=== PATIENT | female | born 1930 | race Caucasian/White ===

== ENCOUNTER 2016-03-26 09:51 | Inpatient (IN) | payer MEDICARE ==
[~2016-03-26] VITALS: Ht 167.6 cm; Wt 53.2 kg
--- NOTE | 2016-03-26 09:52 | ED.REPORT ---
HPI-General Illness Date of Service Mar 26, 2016 ED Provider: The patient is an 85 year old female who presents to the emergency department complaining of dizziness that began a few days ago. She describes the dizziness as "room-spinning." The dizziness is exacerbated with head movement. She has been able to ambulate. Today she lost her balance and fell onto the couch. She did not obtain any injuries. She denies history of vertigo. She has not had similar symptoms in the past. She denies weakness, numbness, speech changes, or vision changes. She denies fever, chills, cough, shortness of breath, chest pain , diaphoresis, abdominal pain, nausea, vomiting, diarrhea or dysuria. She was recently treated for a UTI, these symptoms have since improved. Nursing Notes Stated Complaint: DIZZY Nursing Notes Reviewed: Yes Allergies: Coded Allergies: No Known Allergies (Unverified , 03/26/16) General Time Seen by MD: 09:51 Chief Complaint Dizziness Hx Obtained From: Patient, EMS Arrived By: Ambulance Sudden in Onset?: Yes Onset Occurred: 3 days ago Symptom Duration: Since onset Severity: Current: No pain currently Severity: Maximum: No pain Recent Healthcare: No recent doctor visit, No recent hospitalization Similar Sx Previous: No NIH Stroke Scale Level of Consciousness: Alert and responsive (0) Ask Month & Age: Both questions right (0) Open/Close Eyes/Hand Gleason Gear Generator: Performs both tasks (0) Horizontal EO Movements: None (0) Visual Oliveros: No visual loss (0) Facial Palsy: Normal symmetry (0) Right Arm Motor Drift (10s): No drift 10 sec (0) Left Arm Motor Drift (10s): No drift 10 sec (0) Right Leg Motor Drift (5s): No drift 5 sec (0) Left Leg Motor Drift (5s): No drift 5 sec (0) Limb Ataxia FNF/Heel-Francis: No ataxia (0) Sensation (Arms/Legs/Face): No sensory loss (0) Language Aphasia: No aphasia, normal (0) Dysarthria: No dysarthria, normal (0) Extinction/Inattention: No exctinct/inattent (0) NIHSS Score: 0 Time NIHSS Performed: 11:35 Date NIHSS Performed: Mar 26, 2016 Past Medical History Past Medical History Arthrosclerosis Breast cancer Family History Noncontributory Smoking History Unknown if Ever Smoker Social History Lives in [facility]. She has a caregiver with her every morning for 4 hours. Other Social History: Local resident Ambulatory Status Independent Review of Systems Full Review of Systems Constitutional: Denies: Chills, Fever Ears / Nose / Throat: Denies: Ear ringing bilateral Respiratory: Denies: Non-productive cough, Shortness of breath Cardiovascular: Denies: Chest pain GI: Denies: Abdominal pain, Diarrhea, Nausea, Vomiting Female: Denies: Dysuria Musculoskeletal: Denies: Back pain, Extremity pain, Neck pain Skin: Denies Diaphoresis Allergy / Immune: Reports: Rhinorrhea Neurologic: Reports: Dizziness, Spinning sensation, Denies: Change LOC, Focal weakness, Headache, Numbness, Slurred speech, Syncope, Vision change Complete sys rev & neg: except as marked. Physical Exam Vital Signs Vital Signs Date Time Temp Pulse Resp B/P Pulse Ox O2 Delivery O2 Flow Rate FiO2 03/26/16 12:26 49 17 124/55 95 Room Air 03/26/16 10:24 36.6 51 16 136/60 96 Room Air 03/26/16 10:24 36.6 51 16 136/60 96 Room Air Initial VS: Reviewed Head / Eyes: Atraumatic, Normocephalic, PERRL ENT: Mucous membranes moist, Conjunctiva normal, No scleral icterus Neck: Supple, Non-tender, Full range of motion Respiratory: Breath sounds normal, Clear to auscultation, No respiratory distress Cardiovascular: Regular rate & rhythm, Heart sounds normal, Intact distal pulses Abdomen / GI: Soft, Non-tender, No guarding, No rebound, No distention Lymphatic: No lymphadenopathy Extremities: Vascular intact, Neuro intact, No swelling, No tenderness Skin: Warm, Dry, No cyanosis Psychiatric: Mood/affect normal, Behavior normal, Normal thought content General/Constitutional: Awake, Alert Thin and frail Neurologic: Oriented X3, Speech NL inducible dizziness with head movement Interpretation & Diagnostics Lab Results Interpretation Result Diagram: 03/26/16 1018 03/26/16 1040 Test 03/26/16 10:12 03/26/16 10:18 03/26/16 10:34 03/26/16 10:40 Hold Rosa Top Tube Received (Received) White Blood Count 7.1th/mm3 (3.8-10.1) Red Blood Count 4.57mil/mm3 (3.90-5.20) Hemoglobin 14.1g/dL (12.0-15.6) Hematocrit 43.7% (35.0-46.0) Mean Corpuscular Volume 95.6fL (81-100) Mean Corpuscular Hemoglobin 30.9pg (27.0-35.0) Mean Corpuscular Hemoglobin Concent 32.3% (32.0-37.0) Red Cell Distribution Width 14.2% (12.3-15.4) Platelet Count 268bil/L (150-400) Neutrophils (%) (Auto) 74.3% (40-74) Lymphocytes (%) (Auto) 16.1% (14-46) Monocytes (%) (Auto) 6.9% (4-12) Eosinophils (%) (Auto) 1.8% (0-5) Basophils (%) (Auto) 0.3% (0-3) Urine Color Straw (YELLOW) Urine Appearance Hazy (CLEAR,HAZY) Urine pH 8.0 (5.0-8.0) Urine Specific [place] 1.015 (1.003-1.035) Urine Protein Negativemg/dL (NEG,TRACE) Urine Glucose (UA) Negativemg/dL (NEGATIVE) Urine Ketones Negativemg/dL (NEGATIVE) Urine Occult Blood Negative (NEGATIVE) Urine Nitrite Negative (NEGATIVE) Urine Bilirubin Negative (NEGATIVE) Urine Urobilinogen Normalmg/dL (NORMAL) Urine Leukocyte Esterase Negative (NEGATIVE) Urine RBC 0-2/hpf (0-2) Urine WBC 0-5/hpf (0-5) Urine Epithelial Cells Occasional/hpf (NONE-MOD) Urine Crystals Amorphous phosphates Urine Bacteria None/hpf (NONE-FEW) Urine Hyaline Casts None/lpf (NONE) Urine Granular Casts None seen (NONE SEEN) Urine Waxy Casts None seen (NONE SEEN) Urine Red Blood Cell Casts None seen (NONE SEEN) Urine White Blood Cell Casts None seen (NONE SEEN) Urine Mucus None seen (None Seen) Urine Trichomonas None seen (NONE SEEN) Urine Yeast None (NONE SEEN) Urinalysis Comment None Urine Culture Reflexed Not indicated Sodium Level 141mEq/L (134-144) Potassium Level 3.8mEq/L (3.5-5.2) Chloride Level 101mEq/L (97-108) Carbon Dioxide Level 27mmol/L (18-29) Blood Urea Nitrogen 10mg/dL (8-27) Creatinine 0.39mg/dL (0.57-1.00) Estimat Glomerular Filtration Rate 224mL/min (>59) Glucose Level 98mg/dL (60-99) Calcium Level 9.2mg/dL (8.5-10.1) Magnesium Level 1.9mg/dL (1.6-2.6) Total Bilirubin 0.5mg/dL (0.0-1.2) Aspartate Amino Transf (AST/SGOT) 23U/L (0-50) Alanine Aminotransferase (ALT/SGPT) 14U/L (0-32) Alkaline Phosphatase 86U/L (25-165) Troponin T < 0.010ug/L (0.0-0.011) Total Protein 7.0g/dL (6.4-8.4) Albumin 3.5g/dL (3.4-5.0) ECG Interpretation ECG Interpretation: Sinus rhythm with a rate of 56 LVH Time: 10:30 Interpreted by: ED physician X-Ray Chest Interpretation Chest Xray Interpretation: IMPRESSION: No acute cardiopulmonary disease process. Dictated by: Elizabeth Morales MD, PhD on 03/26/2016 at 11:20 Interpretation / Wet Read by: Interpret - Radiologist CT Head Interpretation IMPRESSION: 1. No acute intracranial abnormality. Dictated by: Pj Saul M.D. on 03/26/2016 at 11:29 Study: Head CT no contrast Interpretation / Wet Read by: Interpret - Radiologist Re-Eval/Medical Decision Med Decision/Clinical Course Overall symptoms sound consistent with BPPV however patient failed a road test and felt like she was going to fall over, this coupled with the fact that she has advanced age and comorbid conditions as well as the fact that she lives in independent living make her fall risk even greater. I would opt to admit her for observation and improvement of symptoms. Source of Hx: Old records, EMS Time of Eval: 11:35 Re-Evaluation/Progress Note: Completed NIH stroke scale Time of Eval: 13:20 Re-Evaluation/Progress Note: The patient did well on her road test until close the end when she suddenly became dizzy and almost fell to the ground. Time of Eval: 13:30 Re-Evaluation/Progress Note: Rechecked the patient. Discussed plan for admission. All questions were addressed. Consultation : Referral / Consult Name: Edy Rios MD Consulted With: Hospitalist Requested Call at: 13:30 Call Returned at: 13:59 Ux Interaction Designer: Will see patient, Agrees with eval, Agrees with plan, Accepts admit Counseled Regarding: Diagnosis, Lab results, Need for admission Discharge & Departure Primary Impression: Pre-syncope Additional Impression: Dizziness Disposition: ADMITTED TO HOSPITAL Discharge Condition All VS Reviewed: Yes Condition: Stable Scribe Attestation Portions of this note were transcribed by Jacklyn Lares. I, Dr. Vaz personally performed the history, physical exam and medical decision-making; I reviewed and confirmed the accuracy of the information in the transcribed note. Signed by: Gisel Sam, 03/26/2016 at 1402. Robe Vaz DO Mar 26, 2016 09:52 Jacklyn Lares Mar 26, 2016 09:53
[2016-03-26] MEDS ORDERED: 0.9% Sodium Chloride 1,000 ML IV ONE (10:05)
[2016-03-26 10:23] LABS: BASOPHILS % (AUTO) 0.3 % (0-3); EOSINOPHILS % (AUTO) 1.8 % (0-5); MONOCYTES % (AUTO) 6.9 % (4-12); Mean Corpuscular Hemoglobin 30.9 pg (27.0-35.0); Mean Corpuscular Volume 95.6 fL (81-100); NEUTROPHILS % (AUTO) 74.3 % (40-74); Platelet Count 268 bil/L (150-400)
[2016-03-26 10:24] VITALS: BP 136/60; PULSE 51; RESP 16; O2SAT 96
--- NOTE | 2016-03-26 11:22 | DRSVH ---
PROCEDURE: X-RAY CHEST ONE VIEW, PORTABLE ([id number]) INDICATIONS: dizziness, weakness, falls TECHNIQUE: One view of the chest was acquired. COMPARISON: None. FINDINGS: Surgical changes and devices: Right axillary surgical clips. Lungs and pleura: No pleural effusions or pneumothorax. Lungs are clear. Mediastinum: Mediastinal contours appear normal. Heart size is normal. Bones and chest wall: No suspicious bony lesions. Overlying soft tissues appear unremarkable. IMPRESSION: No acute cardiopulmonary disease process. Dictated by: Elizbaeth Morales MD, PhD on 03/26/2016 at 11:20 Approved by: Elizabeth Morales MD, PhD on 03/26/2016 at 11:20
[2016-03-26 11:23] LABS: TROPONIN T < 0.010 ug/L (0.0-0.011)
[2016-03-26 11:24] LABS: APPEARANCE,URINE HAZY (CLEAR,HAZY); COLOR,URINE STRAW (YELLOW); OCCULT BLOOD,URINE NEGATIVE (NEGATIVE); UROBILINOGEN,URINE NORMAL (NORMAL)
--- NOTE | 2016-03-26 11:34 | DRSVH ---
PROCEDURE: CT BRAIN WITHOUT CONTRAST ([id number]) INDICATIONS: dizziness TECHNIQUE: Noncontrast 4.5 mm thick angled axial sections acquired from the foramen magnum to the vertex, with c oronal reformats. COMPARISON: None. FINDINGS: Image quality: Excellent. CSF spaces: Basal cisterns are patent. No extra-axial fluid collections. The ventricles are symmet leanna in size and shape. Brain: No intracranial bleeds or masses. There is cerebral volume loss for age, with resultant vent ricular and sulcal prominence. There are periventricular and deep white matter chronic small vessel ischemic changes. There is intracranial internal carotid artery atherosclerosis. Skull and face: Calvarium and visualized facial bones appear intact, without suspicious lesions. Sinuses: Mild left maxillary sinus mucosal thickening is present. Visualized sinuses and mastoids ar e otherwise clear. IMPRESSION: 1. No acute intracranial abnormality. Dictated by: Pj Saul M.D. on 03/26/2016 at 11:29 Approved by: Pj Saul M.D. on 03/26/2016 at 11:32
[2016-03-26 12:26] VITALS: BP 124/55; PULSE 49; RESP 17; O2SAT 95
[2016-03-26] MEDS ORDERED: Polyethylene Glycol (PEG) 17 Gm Powder PO PRN (14:10)
[2016-03-26] MEDS ORDERED: Labetalol 5 mg/mL 4 mL Inj IVPUSH PRN (14:10)
[2016-03-26] MEDS ORDERED: Alum-Mag Hydrox-Simeth 30 mL Suspension PO PRN (14:10)
[2016-03-26] MEDS ORDERED: HYDROcodone-APAP 5-325 mg Tablet PO PRN (14:10)
[2016-03-26] MEDS ORDERED: Ondansetron 2 mg/mL 2 mL Inj IV PRN (14:10)
--- NOTE | 2016-03-26 14:31 | PCM.HPMED ---
Subjective Date of Service Mar 26, 2016 Primary Provider: Admitting Physician: Primary Care Physician: Neville Norwood MD Attending Physician: Admit Status: From the Emergency Department, 23-Hour Observation Chief Complaint: Dizziness, Weakness History of Present Illness: Patient is an 85 year old female with a past medical history of Depression, Breast Cancer, Essential Hypertension, Hyperlipidemia, and hx of Tobacco Use Disorder. She presents to the ER at [facility] complaining of dizziness and generalized weakness for the last 2-3 weeks. Pt states her symptoms are intermittent. This morning she awoke from sleep with significant dizziness. Pt states she felt as though the room was spinning. She states the dizziness lasted approx 10 minutes and then resolved spontaneously. She denies any associated headache, nausea, vomiting, or visual changes. Pt states this has been going on intermittently for nearly 3 weeks and she has never had symptoms like this before. Pt states today she felt very weak and was unable to walk for a period of time secondary to her significant weakness, which then spontaneously resolved. She denies any slurred speech, chest pain, shortness of breath, palpitations, and difficulty swallowing. Pt states her weakness seems to be bilateral. She is currently taking Plavix and Aspirin daily at home. No other complaints or concerns at this time. Review of Systems: All systems reviewed and are negative except for what has already been mentioned in the HPI. Allergies Coded Allergies: No Known Allergies (Unverified , 03/26/16) Home Medications 1. Hydrochlorothiazide 2. Sertraline 3. Vytorin 4. Anastrozole 5. Procardia 6. Metoprolol 7. Plavix 8. Aspirin PMH 1. Essential Hypertension 2. Depression 3. Hx of Breast Cancer 4. Hypercholesterolemia 5. Remote Hx of Tobacco Use Disorder Surgical History None Family History Pt denies any family hx of stroke. Social History Hx Alcohol Use: No Hx Substance Use: No Hx Tobacco Use: Yes Smoking Status: Former Smoker Living Arrangement: Assisted Living Exam Vital Signs Vital Sign - Last Date Time Temp Pulse Resp B/P Pulse Ox O2 Delivery O2 Flow Rate FiO2 03/26/16 12:26 49 17 124/55 95 Room Air 03/26/16 10:24 36.6 Exam GENERAL: NAD, Pt laying in bed comfortably HEENT: AT/NC, PERRLA, EOMI, Mucus Membranes are moist CARDIAC: RRR; No M/R/G PULM: CTAB; No wheezes or rhonchi bilaterally ABD: Soft, Nontender, Nondistended, Positive bowel sounds in all quadrants, No Hepatosplenomegaly appreciated EXT: No C/C/E; No calf tenderness bilaterally SKIN: Warm, Dry, [place], and Intact NEURO: Alert and oriented x3; Following all commands; 4/5 strength in bilateral upper and lower extremities PSYCH: Normal mood and affect Lab and Diagnostics Result Diagram: 03/26/16 1018 03/26/16 1040 X-Rays, CTs and MRIs CT BRAIN WITHOUT CONTRAST INDICATIONS: dizziness TECHNIQUE: Noncontrast 4.5 mm thick angled axial sections acquired from the foramen magnum to the vertex, with coronal reformats. COMPARISON: None. FINDINGS: Image quality: Excellent. CSF spaces: Basal cisterns are patent. No extra-axial fluid collections. The ventricles are symmetric in size and shape. Brain: No intracranial bleeds or masses. There is cerebral volume loss for age , with resultant ventricular and sulcal prominence. There are periventricular and deep white matter chronic small vessel ischemic changes. There is intracranial internal carotid artery atherosclerosis. Skull and face: Calvarium and visualized facial bones appear intact, without suspicious lesions. Sinuses: Mild left maxillary sinus mucosal thickening is present. Visualized sinuses and mastoids are otherwise clear. IMPRESSION: 1. No acute intracranial abnormality. Assessment & Plan Patient is an 85 year old female with a past medical history of Essential Hypertension, Hyperlipidemia, Depression, Hx of Breast Cancer, and remote hx of Tobacco Use Disorder who is admitted to hospital for possible TIA. 1. Transient Ischemic Attack - Will admit as observation - Will order an MRI of brain and MRA of neck - Will order an ECHO now - Continue home Plavix - Increase Aspirin to 324 mg daily - Speech Therapy evaluation for ability to swallow - Physical Therapy evaluation - Hold home antihypertensives for now - Telemetry monitoring - IV Labetalol PRN for SBP greater than 220 mmHg - Meclizine 25 mg PO TID PRN for dizziness - Lipid Panel in AM 2. Essential Hypertension - Well controlled - Hold home antihypertensives for 24 hours given #1 - IV Labetalol PRN for SBP greater than 220 mmHg - Monitor BP closely 3. Hyperlipidemia - Check fasting lipid panel in AM - Pt on Vytorin normally at home 4. Depression - Continue home Sertraline DNR/DNI, per discussion with patient at bedside. Pain Evaluation: Adequate Pain Control GI Prophylaxis: Not indicated VTE Mechanical Devices: Intermittant Pneumatic CD Resuscitation Status: DNR/DNI:Do Not Resuscitate/Intubate Edy Rios MD Mar 26, 2016 14:31
[2016-03-26 15:12] VITALS: BP 136/97; PULSE 78; RESP 19; O2SAT 97
--- NOTE | 2016-03-26 15:36 | NUR ---
Evaluation completed. Please go to "Notes" then click on "Assessments and Notes" (bottom left corner of screen). Then select appropriate discipline tab on top of screen.
[2016-03-26] MEDS ORDERED: HYDR25TA4 PO (16:13)
[2016-03-26] MEDS ORDERED: SERT25TA6 PO (16:14)
[2016-03-26] MEDS ORDERED: EZET1TAB7 PO (16:15)
[2016-03-26] MEDS ORDERED: ANAS1TAB7 PO (16:15)
[2016-03-26] MEDS ORDERED: NFD30TCR PO (16:16)
[2016-03-26] MEDS ORDERED: METO-274 PO (16:17)
[2016-03-26] MEDS ORDERED: ASPI81TA3 PO (16:18)
[2016-03-26] MEDS ORDERED: CLOP75TA3 PO (16:18)
[2016-03-26 16:22] VITALS: BP 131/55; PULSE 63; RESP 20; O2SAT 96
[2016-03-26 22:37] VITALS: BP 123/54; PULSE 61; RESP 16; O2SAT 93
[2016-03-27] VITALS (12 sets, daily range): BP systolic 101–149; BP diastolic 59–76; PULSE 54–86; RESP 16–20; O2SAT 94–100
--- NOTE | 2016-03-27 05:34 | NUR ---
Admit Pt arrived on unit #[id number] from ED with all personal belongings. Oriented to call light. Bed locked, low position.
--- NOTE | 2016-03-27 05:36 | NUR ---
Sleep Pt rested through the night with no complaints of pain or discomfort. Up to BRP with SBA/FWW. Denies dizziness. Pt reports feeling better. Bed alarm on for safety. Call light within reach, using appropriately. Pleasant and cooperative with care.
[2016-03-27 06:14] LABS: BASOPHILS % (AUTO) 0.6 % (0-3); EOSINOPHILS % (AUTO) 2.7 % (0-5); MONOCYTES % (AUTO) 9.2 % (4-12); Mean Corpuscular Hemoglobin 30.8 pg (27.0-35.0); Mean Corpuscular Volume 97.3 fL (81-100); Platelet Count 245 bil/L (150-400)
--- NOTE | 2016-03-27 11:11 | NUR ---
Evaluation completed. Please go to "Notes" then click on "Assessments and Notes" (bottom left corner of screen). Then select appropriate discipline tab on top of screen.
--- NOTE | 2016-03-27 12:56 | DRSVH ---
[facility] [address] [place] [address] Echocardiogram Report Name: JUSTA BENITO JStudy Date: 03/27/2016 Height: 66 in Hospital Exam Location: [facility] Weight: 115 lb Gender: Female BSA: 1.6 m2 : 1930 Age: 85 yrs BP: 114/59 mmHg Reason For Study: STROKE Ordering Physician: HOSPITALIST [facility] Performed By: Waylon Martinez Referring Physician: Ana PANCHAL Interpretation Summary The left ventricle is normal in size. The ejection fraction is estimated to be 60-65%. The right ventricle is normal in size and function. There is moderate mitral regurgitation. Leaflet mobility is mild to moderately reduced. There is moderate aortic regurgitation. There is no hemodynamically significant valvular aortic stenosis. There is mild tricuspid regurgitation. The right ventricular systolic pressure is estimated at 30 mmHg assuming a right atrial pressure of 3 mm Hg. The ascending aorta is moderately enlarged. The aortic arch not well visualized. Procedure: A two-dimensional transthoracic echocardiogram with color flow and Doppler was performed. The study quality was technically adequate. There is no prior echocardiogram noted for this patient. The patient was in normal sinus rhythm during the exam. Left Ventricle: The left ventricle is normal in size. Left ventricular wall thickness is mildly increased. Proximal septal thickening is noted. There is no echo evidence for significant left ventricular outflow tract obstruction. A false chord is noted (normal variant). There is no thrombus. The ejection fraction is estimated to be 60-65%. There is basal inferior wall hypokinesis. Spectral Doppler of the mitral valve is reversed, with an E/A wave ratio < 1.0. Right Ventricle: The right ventricle is normal in size and function. A moderator band is seen in the right ventricle. Atria: There is moderate biatrial enlargement. The interatrial septum is intact with no evidence for an atrial septal defect. Mitral Valve: The mitral valve leaflets are moderately calcified. There is mild to moderate mitral annular calcification. The mitral valve chordae are thickened and/or calcified. The mitral papillary muscle appears thickened and/or calcified. There is moderate mitral regurgitation. The mitral regurgitant jet is eccentrically directed. Aortic Valve: The aortic valve is trileaflet. The aortic valve is mildly calcified. Leaflet mobility is mild to moderately reduced. There is no hemodynamically significant valvular aortic stenosis. The peak aortic velocity is 1.73 m/sec. There is moderate aortic regurgitation. Tricuspid Valve: The tricuspid valve is not well visualized, but is grossly normal. There is mild tricuspid regurgitation. The right ventricular systolic pressure is estimated at 30 mmHg assuming a right atrial pressure of 3 mm Hg. Pulmonic Valve: The pulmonic valve is not well seen, but is grossly normal. There is trace pulmonic regurgitation. Great Vessels: The aortic root is normal size. There is aortic root sclerosis/calcification. The ascending aorta is moderately enlarged. The pulmonary artery is normal size. The IVC is of normal diameter and collapses greater than 50% with a sniff. This suggests a low right atrial pressure of 3 mm Hg. Pericardium/ Pleura There is no pericardial effusion. There is no pleural effusion. MMode/2D Measurements & Calculations LVIDd: 4.5 cm LA dimension: 3.8 cm RA long axis LVOT diam: 2.1 cm LVIDs: 3.2 cm AoV Opening FS: 29.0 % LA A2 area: 22.5 cm RA area EPSS: 1.1 cm LA A4 area: 20.5 cm Ao root diam IVSd: 1.1 cm LA length (vol) : 19.3 cm LVPWd: 0.71 cm RA vol Aortic Jxn: 2.5 cm LA vol: 67.4 ml : 71.1 ml asc Aorta Diam LA vol index RA : 45.0 mm2 Ao Arch Diam (Prox Trans): 2.9 cm IVC diam: 1.6 cm LV sims. diameter/BSA LV sys. diameter/BSA (cm/m^2): 2.9 (cm/m^2): 2.0 Doppler Measurements & Calculations Ao V2 max MV E max valdemar MV E/A: 0.76 TR max valdemar : 173.9 cm/sec : 79.0 cm/sec Med Peak E' Valdemar : 257.6 cm/sec Ao max P.1 mmHg MV A max valdemar TR max PG Ao mean P.5 mmHg : 104.3 cm/sec E/E' med: 22.5 : 26.5 mmHg LVOT Max Valdemar Pulm A Revs Dur PA V2 max : 146.7 cm/sec : 93.9 cm/sec MV A dur PA mean PG MONIE(I,D): 3.3 cm : 0.14 sec sev ratio: 0.91 PA Accel Time AI P1/2t: 779.3 msec : 0.08 sec AI dec slope : 169.8 cm/s2c MV dec time: 0.31 secAo V2 mean LV V1 max PG PA V2 mean : 122.0 cm/sec : 59.9 cm/sec Ao V2 VTI: 39.7 cm LV V1 VTI PA pr(Accel) MONIE(V,D): 3.1 cm2 : 36.0 cm : 44.1 mmHg MONIE indexed to BSA Pulm A Revs Dur - MV A (cm^2/m^2): 2.1 Dur: -0.04 msec Reading Physician:DEBBIE
--- NOTE | 2016-03-27 14:58 | NUR ---
Social Work-initial assessment/ readiness for discharge: Data:See initial assessment. pt is a 85 y/o female who was admitted on 03/26/16 for dizziness per H&P. Pt's insurance is [employer] and PCP is [facility]. EMR Reviewed. Pt's readmission score is 4-high risk .SW met with pt at bedside to discuss discharge planning, SW role explained. Pt resides at [facility] in a ground floor apartment. Pt uses a fww at baseline and does drive. Pt has no HH or SNF history. Pt has civil drafter care insurance, but no VA benefits. SW discussed DPOA/ advanced directive and encouraged pt to bring a copy into the hospital. PT has cleared pt for home with outpt PT. SW attempted to reach pt's friend Jacy, message left. Pt's friend to provide transport home. No anticipated discharge needs. SW will continue to follow if needs arise. Assessment:pt who is independent at baseline. Plan:Pt to discharge home today via POV. No anticipated discharge needs. SW will continue to follow if needs arise. YOLA Short Addendum: 03/27/16 at 1503 by MUSHTAQ ARANGO Amended: Links added.
--- NOTE | 2016-03-27 15:17 | PCM.PNMED ---
Subjective Date of Service Mar 27, 2016 Subjective Montse is doing better this morning. She denies any pain or SOB, but reports that she is still frequently dizzy when she moves her head. She has not noticed any dizziness when she stands. She was able to eat breakfast and has not had any nausea or vomiting. Exam Vital Signs Vital Sign - Last Date Time Temp Pulse Resp B/P Pulse Ox O2 Delivery O2 Flow Rate FiO2 03/27/16 05:51 36.8 60 16 114/59 94 Room Air Intake and Output 03/26/16 03/26/16 03/27/16 Cumulative From/Thru 15:00 23:00 07:00 03/26/16 10:24 - 03/27/16 06:08 Intake Total 1000 ml 236 ml 100 ml 1336 ml Output Total 600 ml 300 ml 100 ml 1000 ml Balance 400 ml -64 ml 0 ml 336 ml Intake Oral 236 ml 100 ml 336 ml IV Total 1000 ml 1000 ml Output Urine Total 600 ml 300 ml 100 ml 1000 ml # Voids 1 1 3 5 # Bowel Movements 0 0 General: Alert, Oriented X3, Cooperative, No Acute Distress Eyes: PERRLA, EOMI, Scleral Anicteric Mouth: Mucous Membr Moist/[place] Neck: Supple Chest & Lungs: Clear to auscultation & percussion, No adventitious breath sounds Cardiovascular: Regular Rate/Rhythm Abdomen: Non-tender, Non-distended, Normoactive bowel tones, Soft Extremities: No cyanosis/clubbing/edma bilat, No Edema Neurological: Cranial Nerves 2-12 Intact, Normal Speech, Sensation Intact, Other (decreased strength and rom of right shoulder, chronic) IVs and Medications Medications Reviewed: Medications were reviewed in detail Lab and Diagnostics Result Diagram: 03/27/1655403/27/16 0555 X-Rays, CTs and MRIs CT BRAIN WITHOUT CONTRAST INDICATIONS: dizziness TECHNIQUE: Noncontrast 4.5 mm thick angled axial sections acquired from the foramen magnum to the vertex, with coronal reformats. COMPARISON: None. FINDINGS: Image quality: Excellent. CSF spaces: Basal cisterns are patent. No extra-axial fluid collections. The ventricles are symmetric in size and shape. Brain: No intracranial bleeds or masses. There is cerebral volume loss for age , with resultant ventricular and sulcal prominence. There are periventricular and deep white matter chronic small vessel ischemic changes. There is intracranial internal carotid artery atherosclerosis. Skull and face: Calvarium and visualized facial bones appear intact, without suspicious lesions. Sinuses: Mild left maxillary sinus mucosal thickening is present. Visualized sinuses and mastoids are otherwise clear. IMPRESSION: 1. No acute intracranial abnormality. Assessment & Plan Patient is an 85 year old female with a past medical history of Essential Hypertension, Hyperlipidemia, Depression, Hx of Breast Cancer, and remote hx of Tobacco Use Disorder who is admitted to hospital for possible TIA. 1. Transient Ischemic Attack, POA - Will admit as observation. DDx is TIA vs BPPV, Meniere's - Will order an MRI of brain and MRA - Will order an ECHO now - Continue home Plavix - Increase Aspirin to 324 mg daily - Speech Therapy evaluation for ability to swallow - Physical Therapy evaluation - Hold home antihypertensives for now - Telemetry monitoring - IV Labetalol PRN for SBP greater than 220 mmHg - Meclizine 25 mg PO TID PRN for dizziness - Lipid Panel -WNL 2. Essential Hypertension, POA - Well controlled - Hold home antihypertensives for 24 hours given #1 - IV Labetalol PRN for SBP greater than 220 mmHg - Monitor BP closely 3. Hyperlipidemia, POA - Check fasting lipid panel in AM - Pt on Vytorin normally at home 4. Depression - Continue home Sertraline DNR/DNI, per discussion with patient at bedside. Dispo: Likely discharge tomorrow if medically cleared. Pain Evaluation: Adequate Pain Control GI Prophylaxis: Not indicated VTE Prophylaxis: Sub-Q Heparin (Unfractionated) VTE Mechanical Devices: Intermittant Pneumatic CD Resuscitation Status: DNR/DNI:Do Not Resuscitate/Intubate Attending Statement Patient was seen and evaluated with Dr. Castillo on 03/27/2016. I agree with the findings, assessment and plan of care as noted above. Jd Castillo DO Mar 27, 2016 07:36 Edy Rios MD Mar 28, 2016 13:15
--- NOTE | 2016-03-27 15:57 | NUR ---
Evaluation completed. Please go to "Notes" then click on "Assessments and Notes" (bottom left corner of screen). Then select appropriate discipline tab on top of screen.
--- NOTE | 2016-03-27 16:05 | NUR ---
Shift note Pleasant and compliant pt, able to make needs known. Uses call light appropriately. Worked with PT and OT today, SBA with FWW. On tele SR 50-60s, up to 1-teens with activity. Bed in low position, call light in reach, will continue with frequent rounding.
[2016-03-27] MEDS: Heparin 5,000 Unit/mL Inj SUBQ SCH (16:47)
--- NOTE | 2016-03-27 17:05 | NUR ---
Case Management: SAVANNA explained to patient at 1636, all questions answered. Signed original in chart, copy given to patient. "How Medicare Covers Self-Administered Drugs Given in Hospital Outpatient Settings" given to patient. Tabitha Yo RN
--- NOTE | 2016-03-27 20:09 | NUR ---
OFF UNIT Pt left unit for MRI at 2005. Addendum: 03/28/16 at [address] RN Return to unit Pt returned to unit. technical administrative assistant notified.
--- NOTE | 2016-03-27 21:13 | DRSVH ---
PROCEDURE: MRI STROKE PROTOCOL ([id number]) Pre- and post-contrast brain MRI, non-contrast brain MR angiogram, pre- and postcontrast neck MR maynor ogram INDICATIONS: dizziness TECHNIQUE: Brain: Noncontrast axial T1 spin echo, axial T2 fast spin echo, sagittal and axial FLAIR, coronal T2 fast spin echo, axial gradient echo, axial diffusion and ADC through the brain. After the administr ation of contrast, axial 3D VIBE of the cranial vasculature and brain. Brain MRA: Non-contrast 3-D time of flight MR angiogram, with multiple wioewws-ynjswxeoq-xftkffzggm (MIP) reformats performed. Neck MRA: Axial and sagittal TruFISP through the neck. Coronal dynamic MR angiogram during administ ration of contrast in the arterial and venous phases, with 3-dimenstional aqpspna-hpjdflnhj-apribbheh n (MIP) reformats constructed from subtraction images. COMPARISON: None. FINDINGS: Image quality: Excellent. BRAIN: CSF spaces: Ventricles are normal in size and shape. Basal cisterns are patent. No extra-axial flu id collections. Brain: No intracranial bleeds or mass effects. Bilateral scattered white matter signal changes stati stically represent chronic microvascular ischemic disease although technically nonspecific. Ruiz-whit e matter interface is normal. Diffusion weighted images show no acute ischemic insults. Brainstem a ppears normal. Normal intravascular flow voids are present. No abnormal intracranial enhancement. Skull and face: Calvarial marrow signal is normal. Orbits appear normal. Sinuses: Mild left maxillary sinus mucosal thickening BRAIN MR ANGIOGRAM: Anterior circulation: Intracranial internal carotid arteries are normal in size and enhancement. Th ere is atresia versus occlusion of the right A1 segment. The flow within the paired anterior cerebral arteries is normal and symmetric. The flow within the middle cerebral arteries is normal and symmet leanna. The anterior communicating artery is seen. No stenoses, occlusions, or aneurysms. Posterior circulation: The visualized portions of the vertebral arteries demonstrate normal caliber, and join to form a normal appearing basilar artery. The flow within the posterior cerebral arteries is normal and symmetric. No stenoses, occlusions, or aneurysms. NECK MR ANGIOGRAM: Carotids: Great vessels demonstrate a conventional anatomy as they arise from the aortic arch. The origins of the common carotid arteries appear patent. The calibers and courses of both common caroti d arteries are normal. The bifurcation regions appear normal bilaterally. The internal carotid krunal shey demonstrate normal course and caliber. Posterior circulation: The origins of the vertebral arteries appear patent. More superior portions of both vertebral arteries demonstrate normal course and caliber, and join to form a normal appearing basilar artery. Miscellaneous: Subclavian arteries appear patent. Pre-contrast images through the neck show no soft tissue abnormalities. IMPRESSION: BRAIN MRI: No evidence of acute ischemia. Left maxillary sinus disease. Diffuse bilateral white matter signal changes, statistically chronic microvascular ischemic disease. 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 on 03/27/2016 at 21:06 Approved by: Garrison Bliss M.D. on 03/27/2016 at 21:12
[2016-03-28] VITALS (8 sets, daily range): BP systolic 121–167; BP diastolic 65–93; PULSE 66–96; RESP 20–21; O2SAT 92–95
[2016-03-28] MEDS: Heparin 5,000 Unit/mL Inj SUBQ SCH ×3 (00:17→16:46)
[2016-03-28 06:44] LABS: BASOPHILS % (AUTO) 0.2 % (0-3); EOSINOPHILS % (AUTO) 1.9 % (0-5); Mean Corpuscular Hemoglobin 30.8 pg (27.0-35.0); NEUTROPHILS % (AUTO) 82.9 % (40-74); Platelet Count 225 bil/L (150-400)
--- NOTE | 2016-03-28 13:28 | NUR ---
Social Work: Discharge Data: Pt is on day 2 of hospitalization. EMR reviewed, pt discussed in rounds. states pt will d/c today. SERVICE CONSULTANT received a phone call from pt's friend Eliza Terell who asked questions about d/c. SERVICE CONSULTANT called Eliza back and let her know pt will discharge today and asked about transportation for pt. Eliza states that she will coordinate with friends regarding transportation and someone will be at hospital to pick her up around 5. No further d/c planning needs. SERVICE CONSULTANT will continue to follow if needs arise. Assessment: Pt who is independent at baseline. Plan: Pt will d/c home today via POV with friends around 5PM. SERVICE CONSULTANT notified RN. No further d/c planning needs. SERVICE CONSULTANT will continue to follow if needs arise. OYLA Sarmiento
--- NOTE | 2016-03-28 13:30 | PCM.DIMED ---
Discharge Instructions Date of Service Mar 28, 2016 Dates of Hospitalization Mar 26, 2016 at 14:42 Discharge Diagnosis Discharge Diagnosis 1. Transient Ischemic Attack, POA 2. Essential Hypertension, POA 3. Hyperlipidemia, POA 4. Depression Diet No restrictions, Heart Healthy Activity No restrictions Call your provider Fever or Chills, Weakness (unilateral) Patient Instructions For your hospitalization, you were admitted for possible Transient Ischemic Attack. Worked up including CT-brain and MRI does not shows current any clots or narrowing of your blood vessels in the brain. Please follow-up with your primary care provider within 1wks. Should you continue to have motion related dizziness, you may have benign positional vertigo. Follow-up Provider: Neville Norwood MD Follow-up with PCP in: 1 week Bjorn Allen DO Mar 28, 2016 13:30
[2016-03-28] MEDS: 0.9% Sodium Chloride 1,000 ML IV SCH (16:51)
--- NOTE | 2016-03-28 18:02 | PCM.PNMED ---
Subjective Date of Service Mar 28, 2016 Subjective Patient continue to have mild dizziness in the AM, otherwise, medically stable for discharge. Vitals this afternoon, spiked fever, generalized weakness, fatigue with mild cough and nose congestion. We will hold discharge for today. Exam Vital Signs Vital Sign - Last Date Time Temp Pulse Resp B/P Pulse Ox O2 Delivery O2 Flow Rate FiO2 03/28/16 14:52 37.9 03/28/16 13:12 96 20 138/80 95 Room Air Intake and Output 03/27/16 03/27/16 03/28/16 Cumulative From/Thru 15:00 23:00 07:00 03/26/16 10:24 - 03/28/16 05:27 Intake Total 810 ml 2146 ml Output Total 450 ml 1450 ml Balance 360 ml 696 ml Intake Oral 810 ml 1146 ml IV Total 1000 ml Output Urine Total 450 ml 1450 ml # Voids 5 # Bowel Movements 0 0 Exam General: Alert, Oriented X3, Cooperative, No Acute Distress Eyes: PERRLA, EOMI, Scleral Anicteric Mouth: Mucous Membr dry. Neck: Supple Chest & Lungs: Clear to auscultation & percussion, No adventitious breath sounds Cardiovascular: Regular Rate/Rhythm Abdomen: Non-tender, Non-distended, Normoactive bowel tones, Soft Extremities: No cyanosis/clubbing/ Right hand edematous compare to left-chronic Neurological: Cranial Nerves 2-12 Intact, Normal Speech, Sensation Intact, Other (decreased strength and rom of right shoulder, chronic) Lab and Diagnostics Result Diagram: 03/28/16 0603/28/16 0605 X-Rays, CTs and MRIs CT BRAIN WITHOUT CONTRAST INDICATIONS: dizziness TECHNIQUE: Noncontrast 4.5 mm thick angled axial sections acquired from the foramen magnum to the vertex, with coronal reformats. COMPARISON: None. FINDINGS: Image quality: Excellent. CSF spaces: Basal cisterns are patent. No extra-axial fluid collections. The ventricles are symmetric in size and shape. Brain: No intracranial bleeds or masses. There is cerebral volume loss for age , with resultant ventricular and sulcal prominence. There are periventricular and deep white matter chronic small vessel ischemic changes. There is intracranial internal carotid artery atherosclerosis. Skull and face: Calvarium and visualized facial bones appear intact, without suspicious lesions. Sinuses: Mild left maxillary sinus mucosal thickening is present. Visualized sinuses and mastoids are otherwise clear. IMPRESSION: 1. No acute intracranial abnormality. Assessment & Plan Patient is an 85 year old female with a past medical history of Essential Hypertension, Hyperlipidemia, Depression, Hx of Breast Cancer, and remote hx of Tobacco Use Disorder who is admitted to hospital for possible TIA. Transient Ischemic Attack, POA - Will admit as observation. DDx is TIA vs BPPV, Meniere's - CT-brain, MRA, echo unrevealing, lipid panel unremarkable as well - Continue home Plavix, increase Aspirin to 324 mg daily - Will D/c home with home health once stable - Hold home antihypertensives for now - Telemetry monitoring - IV Labetalol PRN for SBP greater than 220 mmHg - Meclizine 25 mg PO TID PRN for dizziness Fever, not present on admission, active - Symptoms suggestive of flu. worried about HCAP - Respiratory Viral panel, blood, sputum, urine culture, and procalcitonin pending. - IV fluid started Essential Hypertension, POA - Well controlled - Hold home antihypertensives for 24 hours given #1 - IV Labetalol PRN for SBP greater than 220 mmHg - Monitor BP closely Hyperlipidemia, POA - Check fasting lipid panel in AM - Pt on Vytorin normally at home Depression - Continue home Sertraline DNR/DNI, per discussion with patient at bedside. Dispo: Likely discharge tomorrow if medically cleared. GI Prophylaxis: Not indicated VTE Prophylaxis: Sub-Q Heparin (Unfractionated) VTE Mechanical Devices: Venous Foot Pump Resuscitation Status: DNR/DNI:Do Not Resuscitate/Intubate Attending Statement The patient was seen and examined together with Dr. Bjorn Allen on 03/28/2016 and I agree with the history, exam and plan as outlined in the note above. Bjorn Allen DO Mar 28, 2016 15:51 Edy Rios MD Mar 29, 2016 13:25
[2016-03-29] VITALS (9 sets, daily range): BP systolic 112–147; BP diastolic 62–75; PULSE 67–101; RESP 18–20; O2SAT 92–96
[2016-03-29] MEDS: Heparin 5,000 Unit/mL Inj SUBQ SCH ×4 (00:09→22:55)
--- NOTE | 2016-03-29 03:45 | NUR ---
activity Pt resting quietly in bed for the shift, alert and oriented. Pt denies pain or discomfort, temp of 37.9, paged Dr with information. Will continue to monitor.
[2016-03-29] MEDS: 0.9% Sodium Chloride 1,000 ML IV SCH (04:10)
[2016-03-29 08:41] LABS: BASOPHILS % (AUTO) 0.2 % (0-3); EOSINOPHILS % (AUTO) 0.2 % (0-5); MONOCYTES % (AUTO) 7.6 % (4-12); Mean Corpuscular Hemoglobin 30.4 pg (27.0-35.0); Mean Corpuscular Volume 97.1 fL (81-100); NEUTROPHILS % (AUTO) 76.9 % (40-74); Platelet Count 179 bil/L (150-400)
--- NOTE | 2016-03-29 10:55 | NUR ---
Social Work: Readiness for d/c Data: Pt is on day 3 of hospitalization. EMR reviewed, pt discussed in rounds. Pt did not d/c yesterday as planned due to a fever. MD states pt likely ready for d/c tomorrow morning. No d/c planning needs identified at this time. CD STORAGE AND MATERIALS MAKE UP HELPER will continue to follow if needs arise. Assessment: Pt who is independent at baseline. Plan: Pt will d/c home via POV with friend when medically stable, likely tomorrow. No d/c planning needs identified at this time. CD STORAGE AND MATERIALS MAKE UP HELPER will continue to follow if needs arise. YOLA Sarmiento
[2016-03-29] MEDS: Amoxicillin-Clav 875-125 mg Tablet PO SCH ×2 (13:10→20:47)
--- NOTE | 2016-03-29 13:14 | PCM.PNMED ---
Subjective Date of Service Mar 29, 2016 Subjective Montse is doing well this morning. She still is intermittently dizzy, but the frequency is much less now. She is tolerating PO intake and denies any N/V/D or F/C or SOB. Exam Vital Signs Vital Sign - Last Date Time Temp Pulse Resp B/P Pulse Ox O2 Delivery O2 Flow Rate FiO2 03/29/16 12:40 36.8 69 20 145/75 96 Room Air Intake and Output 03/28/16 03/28/16 03/29/16 Cumulative From/Thru 15:00 23:00 07:00 03/26/16 10:24 - 03/28/16 20:07 Intake Total 200 ml 436 ml 2782 ml Output Total 575 ml 625 ml 2650 ml Balance -375 ml -189 ml 132 ml Intake Oral 200 ml 436 ml 1782 ml IV Total 1000 ml Output Urine Total 575 ml 625 ml 2650 ml # Voids 5 # Bowel Movements 1 1 2 Exam General: Alert, Oriented X3, Cooperative, No Acute Distress HEENT: PERRLA, Mucous membranes pink, moist. There is TTP of left maxillary sinus, slightly bluish nasal mucosa. Neck: Supple Chest & Lungs: Clear to auscultation & percussion, No adventitious breath sounds Cardiovascular: Regular Rate/Rhythm Abdomen: Non-tender, Non-distended, Normoactive bowel tones, Soft Extremities: No cyanosis/clubbing/edma bilat, No pedal edema. There is chronic RUE edema. Neurological: Grossly intact, no focal weakness. IVs and Medications Medications Reviewed: Medications were reviewed in detail Lab and Diagnostics Result Diagram: 03/29/1681903/29/16 0820 X-Rays, CTs and MRIs CT BRAIN WITHOUT CONTRAST INDICATIONS: dizziness TECHNIQUE: Noncontrast 4.5 mm thick angled axial sections acquired from the foramen magnum to the vertex, with coronal reformats. COMPARISON: None. FINDINGS: Image quality: Excellent. CSF spaces: Basal cisterns are patent. No extra-axial fluid collections. The ventricles are symmetric in size and shape. Brain: No intracranial bleeds or masses. There is cerebral volume loss for age , with resultant ventricular and sulcal prominence. There are periventricular and deep white matter chronic small vessel ischemic changes. There is intracranial internal carotid artery atherosclerosis. Skull and face: Calvarium and visualized facial bones appear intact, without suspicious lesions. Sinuses: Mild left maxillary sinus mucosal thickening is present. Visualized sinuses and mastoids are otherwise clear. IMPRESSION: 1. No acute intracranial abnormality. Assessment & Plan Patient is an 85 year old female with a past medical history of Essential Hypertension, Hyperlipidemia, Depression, Hx of Breast Cancer, and remote hx of Tobacco Use Disorder who is admitted to hospital for dizziness. Dizziness, POA - Will admit as observation. DDx is TIA vs BPPV, Meniere's. More likely her dizziness is BPPV or sinusitis related since her symptoms are continued and intermittent, and imaging has been reassuring. - CT-brain, MRA, echo unrevealing, lipid panel unremarkable as well - Continue home Plavix, continue ASA at 81 mg on d/c - Will D/c home with home health once stable - Telemetry dc/d, - IV Labetalol PRN for SBP greater than 220 mmHg - Meclizine 25 mg PO TID PRN for dizziness Fever, not present on admission, active - Symptoms suggestive of flu. worried about HCAP - Respiratory Viral panel, blood, sputum, urine culture, and procalcitonin pending benign - IV fluid started - MRI did reveal left maxillary sinus disease; along with s/s of sinusitis, this may explain her low grade fever. Other workup has been benign. She also reports she has sinusitis that was treated about 2 weeks ago - Will start on Augmentin 875/125 BID x 10 days (03/29). Discharge tomorrow if remains afebrile and tolerates medication well. Essential Hypertension, POA - Well controlled - Resume home medications - IV Labetalol PRN for SBP greater than 220 mmHg - Monitor BP closely Hyperlipidemia, POA - Check fasting lipid panel in AM - Pt on Vytorin normally at home Depression - Continue home Sertraline DNR/DNI, per discussion with patient at bedside. Dispo: Likely discharge tomorrow if medically cleared. Pain Evaluation: Adequate Pain Control GI Prophylaxis: Not indicated VTE Prophylaxis: Sub-Q Heparin (Unfractionated) VTE Mechanical Devices: Venous Foot Pump Resuscitation Status: DNR/DNI:Do Not Resuscitate/Intubate Attending Statement The patient was seen and examined together with Dr. Castillo on 03/29/2016 and I agree with the history, exam and plan as outlined in the note above. Jd Castillo DO Mar 29, 2016 13:14 Edy Rios MD Mar 29, 2016 13:26
--- NOTE | 2016-03-29 15:37 | NUR ---
Case Management: IMM explained, patient signed, copy provided, orig in chart. [email or web address]>
[2016-03-29] MEDS: Potassium Chloride 20 mEq SR Tablet PO SCH (17:33)
--- NOTE | 2016-03-29 19:27 | NUR ---
Activity: Patient has been resting off and on throughout the day. She was assisted to the BS as needed to void. Patient has had no c/o pain . Patient has not complained of dizziness. Her temp is now 36.5 wnl.
[2016-03-30 00:28] VITALS: BP 136/67; PULSE 74; RESP 18; O2SAT 95
--- NOTE | 2016-03-30 05:18 | NUR ---
Meds Pt complained of taking Meclizine, thinks it is causing diarrhea. She had diarrhea on the that she thinks is related to the medication. Will continue to monitor, no noted diarrhea this shift.
[2016-03-30 05:27] VITALS: BP 126/73; PULSE 70; RESP 18; O2SAT 93
[2016-03-30 06:47] LABS: BASOPHILS % (AUTO) 0.2 % (0-3); EOSINOPHILS % (AUTO) 1.5 % (0-5); MONOCYTES % (AUTO) 11.9 % (4-12); Mean Corpuscular Hemoglobin 31.1 pg (27.0-35.0); Mean Corpuscular Volume 96.8 fL (81-100); NEUTROPHILS % (AUTO) 65.9 % (40-74); Platelet Count 169 bil/L (150-400)
[2016-03-30] MEDS: Potassium Chloride 20 mEq SR Tablet PO SCH (07:40)
[2016-03-30] MEDS: Amoxicillin-Clav 875-125 mg Tablet PO SCH (07:41)
[2016-03-30] MEDS: Heparin 5,000 Unit/mL Inj SUBQ SCH (07:41)
--- NOTE | 2016-03-30 08:46 | PCM.DIMED ---
Discharge Instructions Date of Service Mar 30, 2016 Dates of Hospitalization Mar 26, 2016 at 14:42 Discharge Diagnosis Discharge Diagnosis 1. Dizziness, POA 2. Essential Hypertension, POA 3. Hyperlipidemia, POA 4. Depression 5. Acute Sinusitis of left maxillary sinus, Medication Instructions You have been prescribed an antibiotic for your Sinusitis, please take the Augmentin as prescribed with food and finish the whole pack. We have stopped your Zetia because your cholesterol levels look great and the Zetia may be causing some side effects for you also. We are switching you over to just Atorvastatin 20mg take every night. I have also stopped your HCTZ because your blood pressures have been decently controlled during the whole hospital stay. Continue your other medications as instructed before. Diet No restrictions, Heart Healthy Activity No restrictions Call your provider Fever or Chills, Weakness (unilateral) Patient Instructions For your hospitalization, you were admitted for possible Transient Ischemic Attack. We performed a CT-brain and MRI of your brain, which did not show any clots or narrowing of your blood vessels in the brain. There were some anatomical variations noted, which is likely normal. Please follow-up with your primary care provider within 1 week for re- evaluation. Should you continue to have motion related dizziness, you may have benign positional vertigo. You may continue taking the Meclizine to help with the dizziness. Please also drink at least 2 Liters of water daily to keep hydrated and healthy. Follow-up Provider: Neville Norwood MD Follow-up with PCP in: 1 week Jd Castillo DO Mar 30, 2016 08:46
[2016-03-30] MEDS ORDERED: ATOR20TA65 PO (08:49)
[2016-03-30] MEDS ORDERED: AGM875T PO (08:49)
[2016-03-30 09:09] VITALS: PULSE 90
[2016-03-30 09:20] VITALS: BP 140/74; PULSE 100; RESP 20; O2SAT 95
--- NOTE | 2016-03-30 11:21 | NUR ---
Social Work-discharge: Data:EMR Reviewed. Pt is on day 4 of hospitalization for dizziness per H&P. Pt is medically stable to discharge home today. Pt has been cleared by PT/OT/ST for home with outpt services. Pt has private pay caregivers to come in an assist pt. Pt's friend to provide transport home today. No discharge needs identified. All updated and agreeable to plan. Assessment:pt who is independent at baseline. Plan:Pt to discharge home today via POV. No discharge needs identified. All updated and agreeable to plan. YOLA Short
--- NOTE | 2016-03-30 12:28 | NUR ---
discharge paperwork review, no questions at this time. pt denies pain/distress. pt transported to private car to return home via hospital W/C by CONTACT PERSON. belongings are bagged and carried out by family.
--- NOTE | 2016-03-30 13:47 | PCM.DC.MED ---
Discharge Summary Date of Service Mar 30, 2016 Dates of Hospitalization Date of Hospital Admission Mar 26, 2016 at 14:42 Date of Discharge: Mar 30, 2016 Providers: Admitting Physician: Edy Rios MD Primary Care Physician: Neville Norwood MD Attending Physician: Edy Rios MD Diagnosis at Time of Discharge Diagnosis at Time of Discharge 1. Dizziness, POA 2. Essential Hypertension, POA 3. Hyperlipidemia, POA 4. Depression 5. Acute Sinusitis of left maxillary sinus, Procedures XRay, CTs & MRIs CT BRAIN WITHOUT CONTRAST INDICATIONS: dizziness TECHNIQUE: Noncontrast 4.5 mm thick angled axial sections acquired from the foramen magnum to the vertex, with coronal reformats. COMPARISON: None. FINDINGS: Image quality: Excellent. CSF spaces: Basal cisterns are patent. No extra-axial fluid collections. The ventricles are symmetric in size and shape. Brain: No intracranial bleeds or masses. There is cerebral volume loss for age , with resultant ventricular and sulcal prominence. There are periventricular and deep white matter chronic small vessel ischemic changes. There is intracranial internal carotid artery atherosclerosis. Skull and face: Calvarium and visualized facial bones appear intact, without suspicious lesions. Sinuses: Mild left maxillary sinus mucosal thickening is present. Visualized sinuses and mastoids are otherwise clear. IMPRESSION: 1. No acute intracranial abnormality. Brief History Patient is an 85 year old female with a past medical history of Depression, Breast Cancer, Essential Hypertension, Hyperlipidemia, and hx of Tobacco Use Disorder. She presents to the ER at [facility] complaining of dizziness and generalized weakness for the last 2-3 weeks. Pt states her symptoms are intermittent. This morning she awoke from sleep with significant dizziness. Pt states she felt as though the room was spinning. She states the dizziness lasted approx 10 minutes and then resolved spontaneously. She denies any associated headache, nausea, vomiting, or visual changes. Pt states this has been going on intermittently for nearly 3 weeks and she has never had symptoms like this before. Pt states today she felt very weak and was unable to walk for a period of time secondary to her significant weakness, which then spontaneously resolved. She denies any slurred speech, chest pain, shortness of breath, palpitations, and difficulty swallowing. Pt states her weakness seems to be bilateral. She is currently taking Plavix and Aspirin daily at home. No other complaints or concerns at this time. Hospital Course Patient is an 85 year old female with a past medical history of Essential Hypertension, Hyperlipidemia, Depression, Hx of Breast Cancer, and remote hx of Tobacco Use Disorder who is admitted to hospital for evaluation of her dizziness. Dizziness, POA - Resolved - Will admit as observation. DDx is TIA vs BPPV, Meniere's. More likely her dizziness is BPPV or sinusitis related since her symptoms are >24 hours and intermittent, and imaging has been reassuring. - CT-brain, MRA, echo unrevealing, lipid panel unremarkable as well - Continue home Plavix on d/c - Telemetry dc/d, No events noted. - IV Labetalol PRN for SBP greater than 220 mmHg - Meclizine 25 mg PO TID PRN for dizziness - This was fairly effective in controlling her dizziness. - Dizziness resolved, most likely due to BPPV. Fever, not present on admission, active - Symptoms suggestive of flu. worried about HCAP - Respiratory Viral panel, blood, sputum, urine culture, and procalcitonin were all benign - MRI did reveal left maxillary sinus disease; along with s/s of sinusitis, this may explain her low grade fever. Other workup has been benign. She also reports she has sinusitis that was partially treated about 2 weeks ago - Will start on Augmentin 875/125 BID x 10 days (03/29). - She tolerated this regimen well and will be discharged home to complete the regimen. Essential Hypertension, POA - Well controlled during hospitalization - In lieu of fairly well controlled HTN without her home blood pressure medications, will stop her HCTZ on discharge due to her already borderline low normal sodium levels. Will resume her Nicardipine and Metoprolol. Hyperlipidemia, POA - Check fasting lipid panel in AM - Pt on Vytorin normally at home. - Her fasting lipid levels were all fairly low during admission. Will d/c Zetia on discharge due to diarrhea side effect after resuming it during stay. Depression - Continue home Sertraline DNR/DNI, per discussion with patient at bedside. Exam Vital Signs (Last) Date Time Temp Pulse Resp B/P Pulse Ox O2 Delivery O2 Flow Rate FiO2 03/30/16 09:20 36.7 100 20 140/74 95 Room Air Test 03/26/16 10:12 03/26/16 10:34 03/26/16 10:40 03/27/16 05:55 Hold Rosa Top Tube Received (Received) Urine Color Straw (YELLOW) Urine Appearance Hazy (CLEAR,HAZY) Urine pH 8.0 (5.0-8.0) Urine Specific [place] 1.015 (1.003-1.035) Urine Protein Negativemg/dL (NEG,TRACE) Urine Glucose (UA) Negativemg/dL (NEGATIVE) Urine Ketones Negativemg/dL (NEGATIVE) Urine Occult Blood Negative (NEGATIVE) Urine Nitrite Negative (NEGATIVE) Urine Bilirubin Negative (NEGATIVE) Urine Urobilinogen Normalmg/dL (NORMAL) Urine Leukocyte Esterase Negative (NEGATIVE) Urine RBC 0-2/hpf (0-2) Urine WBC 0-5/hpf (0-5) Urine Epithelial Cells Occasional/hpf (NONE-MOD) Urine Crystals Amorphous phosphates Urine Bacteria None/hpf (NONE-FEW) Urine Hyaline Casts None/lpf (NONE) Urine Granular Casts None seen (NONE SEEN) Urine Waxy Casts None seen (NONE SEEN) Urine Red Blood Cell Casts None seen (NONE SEEN) Urine White Blood Cell Casts None seen (NONE SEEN) Urine Mucus None seen (None Seen) Urine Trichomonas None seen (NONE SEEN) Urine Yeast None (NONE SEEN) Urinalysis Comment None Urine Culture Reflexed Not indicated Magnesium Level 1.9mg/dL (1.6-2.6) Troponin T < 0.010ug/L (0.0-0.011) Total Bilirubin 0.5mg/dL (0.0-1.2) Aspartate Amino Transf (AST/SGOT) 21U/L (0-50) Alanine Aminotransferase (ALT/SGPT) 11U/L (0-32) Alkaline Phosphatase 71U/L (25-165) Total Protein 5.8g/dL (6.4-8.4) Albumin 2.7g/dL (3.4-5.0) Triglycerides Level 70mg/dL (0-149) Cholesterol Level 124mg/dL (100-199) LDL Cholesterol, Calculated 63.000mg/dL (0-99) VLDL Cholesterol 14.000mg/dL HDL Cholesterol 47mg/dL (>39) Cholesterol/HDL Ratio 2.64 (0.0-4.4) Test 03/28/16 06:05 03/30/16 06:00 Procalcitonin < 0.05ng/mL (See Comment) White Blood Count 4.6th/mm3 (3.8-10.1) Red Blood Count 4.08mil/mm3 (3.90-5.20) Hemoglobin 12.7g/dL (12.0-15.6) Hematocrit 39.5% (35.0-46.0) Mean Corpuscular Volume 96.8fL (81-100) Mean Corpuscular Hemoglobin 31.1pg (27.0-35.0) Mean Corpuscular Hemoglobin Concent 32.2% (32.0-37.0) Red Cell Distribution Width 14.6% (12.3-15.4) Platelet Count 169bil/L (150-400) Neutrophils (%) (Auto) 65.9% (40-74) Lymphocytes (%) (Auto) 20.3% (14-46) Monocytes (%) (Auto) 11.9% (4-12) Eosinophils (%) (Auto) 1.5% (0-5) Basophils (%) (Auto) 0.2% (0-3) Sodium Level 137mEq/L (134-144) Potassium Level 4.0mEq/L (3.5-5.2) Chloride Level 102mEq/L (97-108) Carbon Dioxide Level 24mmol/L (18-29) Blood Urea Nitrogen 10mg/dL (8-27) Creatinine 0.38mg/dL (0.57-1.00) Estimat Glomerular Filtration Rate 231mL/min (>59) Glucose Level 81mg/dL (60-99) Calcium Level 8.4mg/dL (8.5-10.1) Discharge Medications Discharge Medications Amoxicillin/Clav K 875-125 mg (Amoxicillin/Clav K 875-125 mg) 875 Mg Tab 1 TAB PO BID Prescribed by: BLUE CASTILLO DO Anastrozole (Anastrozole) 1 Mg Tablet 1 MG PO DAILY (Reported) Aspirin Chew (Aspirin Chew) 81 Mg Chew 81 MG PO DAILY (Reported) Atorvastatin Calcium (Atorvastatin Calcium) 20 Mg Tablet 20 MG PO HS Prescribed by: BLUE CASTILLO DO Clopidogrel Bisulfate (Plavix) 75 Mg Tablet 37.5 MG PO DAILY (Reported) Metoprolol Succinate ER (Metoprolol Succinate ER) 100 Mg Tab.er.24h 100 MG PO DAILY (Reported) Nifedipine ER (Procardia XL) 30 Mg Tablet 30 MG PO MORNING (Reported) Sertraline HCl (Sertraline) 25 Mg Tablet 25 MG PO DAILY (Reported) Additional med instructions You have been prescribed an antibiotic for your Sinusitis, please take the Augmentin as prescribed with food and finish the whole pack. We have stopped your Zetia because your cholesterol levels look great and the Zetia may be causing some side effects for you also. We are switching you over to just Atorvastatin 20mg take every night. I have also stopped your HCTZ because your blood pressures have been decently controlled during the whole hospital stay. Continue your other medications as instructed before. Followup Plan Discharge Diet: No restrictions, Heart Healthy Discharge Activity: No restrictions Patient Instructions For your hospitalization, you were admitted for possible Transient Ischemic Attack. We performed a CT-brain and MRI of your brain, which did not show any clots or narrowing of your blood vessels in the brain. There were some anatomical variations noted, which is likely normal. Please follow-up with your primary care provider within 1 week for re- evaluation. Should you continue to have motion related dizziness, you may have benign positional vertigo. You may continue taking the Meclizine to help with the dizziness. Please also drink at least 2 Liters of water daily to keep hydrated and healthy. Follow-up Provider: Neville Norwood MD Follow-up with PCP in: 1 week Time spent 30 minutes Attending Statement The patient was seen and examined together with Dr. Castillo on 03/30/2016 and I agree with the findings, assessment and plan as stated above. Jd Castillo DO Mar 30, 2016 13:47 Edy Rios MD Mar 31, 2016 13:06
== END 2016-03-30 12:25 | disposition home or self-care (01) | DRG 149 ==
LOC: SED 09:51 → OBSVTOIN 14:42 → MPC 14:42
PROVIDERS: ADMIT Family Medicine; ATTEND Family Medicine
DX: H81.10 Benign paroxysmal vertigo, unspecified ear (principal); I10 Essential (primary) hypertension; E78.5 Hyperlipidemia, unspecified; F32.9 Major depressive disorder, single episode, unspecified; Z87.891 Personal history of nicotine dependence; Z66 Do not resuscitate; Z85.3 Personal history of malignant neoplasm of breast; J01.01 Acute recurrent maxillary sinusitis